=== PATIENT | male | born 1930 | race Caucasian/White ===

== ENCOUNTER 2018-01-17 11:43 | Inpatient (IN) ==
[2018-01-17 13:04] LABS: Baso % (Auto) 0.5 % (0.0-2.0); Eos # (Auto) 0.2 th/mm3 (0.0-0.4); Eos % (Auto) 2.4 % (0.0-4.0); Hematocrit 47.7 % (39.0-51.0); Hemoglobin 15.5 gm/dL (13.0-17.0); Lymph % (Auto) 10.9 % (9.0-44.0); Mean Corpuscular HGB Conc 32.4 % (32.0-36.0); Mean Corpuscular Hemoglobin 28.6 pg (27.0-34.0); Mean Corpuscular Volume 88.1 fL (80.0-100.0); Mono # (Auto) 0.6 th/mm3 (0.0-0.9); Mono % (Auto) 6.2 % (0.0-8.0); Neut # (Auto) 7.6 th/mm3 (1.8-7.7); Platelet Count 319 th/mm3 (150-450); Red Blood Count 5.41 mil/mm3 (4.50-5.90); Red Cell Distribution Width 14.6 % (11.6-17.2); White Blood Count 9.4 th/mm3 (4.0-11.0)
[2018-01-17 13:13] LABS: Chloride 106 meq/L (98-107); Potassium 4.4 meq/L (3.5-5.1); Sodium 142 meq/L (136-145)
[2018-01-17 13:17] LABS: Albumin 2.8 g/dL (3.4-5.0); Anion Gap 7 meq/L (5-15); Calcium 9.1 mg/dL (8.5-10.1); Glucose,Random 106 mg/dL (74-106)
[2018-01-17 13:18] LABS: Blood Urea Nitrogen 32 mg/dL (7-18)
[2018-01-17 13:20] LABS: Alanine Aminotransferase 21 U/L (12-78); Aspartate Aminotransferase 18 U/L (15-37)
[2018-01-17 13:21] LABS: Glomerular Filtration Rate 57 mL/min (>89)
[2018-01-17 13:22] LABS: Total Protein 7.7 g/dL (6.4-8.2)
[2018-01-17 13:23] LABS: Alkaline Phosphatase 95 U/L (45-117)
--- NOTE | 2018-01-17 14:06 | XR ---
EXAM DATE: 01/17/2018 12:51 PM EDT AGE/SEX: 87 years / Male INDICATIONS: . Short of breath and protective cough. CLINICAL DATA: This is the patient's initial encounter. Patient reports that signs and symptoms have been present for 1 week and indicates a pain score of 0/10. MEDICAL/SURGICAL HISTORY: . Cardiovascular disease. Hypercholesterolemia. Hypertension. . Appe ndectomy COMPARISON: [facility], CT ABDOMEN & PELVIS W/O CONTRAST, 01/11/2015. . FINDINGS: PA and lateral views of the chest demonstrate coarse interstitial markings throughout both lungs but more pronounced on the left. An intra-alveolar opacity is seen posteriorly within the left base. No d iscrete effusions. Heart is at the upper limits of normal in terms of size. A degenerative thoracic s pine. CONCLUSION: Bilateral predominantly interstitial opacities with left lower lobe intra-alveolar opacity. There is a component of underlying chronic interstitial fibrotic change. Left lower lobe infectious infiltrate suspected. Electronically signed by: Francisco Patel MD 01/17/2018 2:04 PM EDT
[2018-01-17] MEDS ORDERED: Azithromycin Inj 500 MG in Sodium Chlor 0.9% Inj 250 ML IV.SIG ONE (15:42)
[2018-01-17] MEDS ORDERED: Sodium Chlor 0.9% Inj 500 ML IV.SIG SCH (16:00)
--- NOTE | 2018-01-17 16:44 | ED ---
HPI General Chief Complaint: Respiratory Symptoms Stated Complaint: SOB/cough Time Seen by Provider: 01/17/18 12:51 Source: patient and family Limitations: no limitations History of Present Illness Patient is an 87-year-old male, past medical history significant for hypertension and edema, not on oxygen at home, who presents with complaint of worsening shortness of breath over the last several days with a cough. No fever nor chills. No chest pain. Family states he is still being his normal self but more dyspneic. He has not had any leg pain or swelling. MD Complaint: Reports shortness of breath and cough Onset (ago): day(s) Severity: moderate Consistency/Duration: constant Relieving factors: nothing Exacerbating factors: nothing Known history of: Reports COPD Associated symptoms: Reports denies other symptoms Treatment prior to arrival: Reports none Related Data Home Medications Medication Instructions Recorded Confirmed Aspir-81 81 mg PO HS 01/17/18 01/17/18 cholecalciferol (vitamin D3) 1,000 unit PO HS 01/17/18 01/17/18 [Vitamin D3] finasteride 5 mg PO DAILY 01/17/18 01/17/18 losartan 100 mg PO DAILY 01/17/18 01/17/18 Allergies Allergy/AdvReac Type Severity Reaction Status Date / Time No Known Allergies Allergy Verified 01/17/18 12:09 Review of Systems ROS: all other systems reviewed are negative [facility] Medical History Medical History Enlarged prostate (Acute) Hypertension (Acute) Surgical History Surgical History No history of previous surgery (Acute) Social History Social History Substance History: No History of Abuse Smoking Status: Former smoker How Often Do You Have a Drink Containing Alcohol: Never Recent Travel in [facility] within the Last 8 Weeks: No Recent Out of Country Travel within the Last 8 Weeks: No Immunization History Tetanus Immunization: Unsure Exam Narrative Exam Narrative: GENERAL: Chronically ill-appearing male in no acute distress SKIN: Focused skin assessment warm/dry. Pale. HEAD: Atraumatic. Normocephalic. EYES: Pupils equal and round. No scleral icterus. No injection or drainage. ENT: No nasal bleeding or discharge. Mucous membranes pink and moist. NECK: Trachea midline. No JVD. CARDIOVASCULAR: Regular rate and rhythm. No murmur appreciated. Intact and equal peripheral pulses. RESPIRATORY: No accessory muscle use. Rhonchi with faint crackles. GASTROINTESTINAL: Abdomen soft, non-tender, nondistended. Hepatic and splenic margins not palpable. MUSCULOSKELETAL: No obvious deformities. No clubbing. No cyanosis. No edema. NEUROLOGICAL: Awake and alert. No obvious cranial nerve deficits. Motor grossly within normal limits. Normal speech. PSYCHIATRIC: Appropriate mood and affect; insight and judgment normal. Course Initial Documented Vital Signs Pulse Rate 104 H 01/17/18 12:06 Respiratory Rate 26 H 01/17/18 12:06 Blood Pressure 92/52 L 01/17/18 12:06 Pulse Oximetry 92 L 01/17/18 12:06 Last Documented Vital Signs Pulse Rate 98 H 01/17/18 16:46 Respiratory Rate 18 01/17/18 16:46 Blood Pressure 119/58 L 01/17/18 16:46 Pulse Oximetry 94 L 01/17/18 16:46 Medical Decision Making MDM Narrative Medical decision making narrative: Patient is an 87-year-old male who presents with complaint of worsening dyspnea and cough. He is hemodynamically stable in the emergency department. He has been given duo nebs which helped slightly. EKG was without acute ischemic changes. Blood work was unremarkable. Chest x- ray was concerning for pneumonia. He has not been admitted to the hospital in the last 3 months thus he was given Rocephin and azithromycin for community- acquired pneumonia. He has been admitted to Dr. Mcgrath, hospitalist on-call, for further evaluation and management. Medical Screen Exam Complete: Yes Emergency Medical Condition: Yes Differential Diagnosis Differential Diagnosis: Differential diagnosis includes but is not limited to COPD exacerbation, pneumonia, pneumothorax, pulmonary embolism. Medical Records Medical records reviewed: Yes I reviewed the patient's medical records. Lab Data Lab results reviewed: Yes I reviewed the patient's lab results. Result diagrams: 01/17/18 12:50 01/17/18 12:50 Lab Results 01/17/18 01/17/18 01/17/18 Range/Units 12:50 12:50 12:50 CBC w Diff Auto diff final WBC 9.4 (4.0-11.0) th/mm3 RBC 5.41 (4.50-5.90) mil/mm3 Hgb 15.5 (13.0-17.0) gm/dL Hct 47.7 (39.0-51.0) % MCV 88.1 (80.0-100.0) fL MCH 28.6 (27.0-34.0) pg MCHC 32.4 (32.0-36.0) % RDW 14.6 (11.6-17.2) % Plt Count 319 (150-450) th/mm3 MPV 8.0 (7.0-11.0) fL Neut % (Auto) 80.0 H (16.0-70.0) % Lymph % (Auto) 10.9 (9.0-44.0) % [place] % (Auto) 6.2 (0.0-8.0) % Eos % (Auto) 2.4 (0.0-4.0) % Baso % (Auto) 0.5 (0.0-2.0) % Neut # (Auto) 7.6 (1.8-7.7) th/mm3 Lymph # (Auto) 1.0 (1.0-4.8) th/mm3 [place] # (Auto) 0.6 (0.0-0.9) th/mm3 Eos # (Auto) 0.2 (0.0-0.4) th/mm3 Baso # (Auto) 0.0 (0.0-0.2) th/mm3 WBC Differential . Differential Comment . Sodium 142 (136-145) meq/L Potassium 4.4 (3.5-5.1) meq/L Chloride 106 (98-107) meq/L Carbon Dioxide 29.0 (21.0-32.0) meq/L Anion Gap 7 (5-15) meq/L BUN 32 H (7-18) mg/dL Creatinine 1.20 (0.60-1.30) mg/dL Estimated GFR 57 L (>89) mL/min Random Glucose 106 (74-106) mg/dL Calcium 9.1 (8.5-10.1) mg/dL Total Bilirubin 0.8 (0.2-1.0) mg/dL AST 18 (15-37) U/L ALT 21 (12-78) U/L Alkaline Phosphatase 95 (45-117) U/L Troponin I 0.04 (0.02-0.05) ng/mL B-Natriuretic Peptide (0-100) pg/mL Total Protein 7.7 (6.4-8.2) g/dL Albumin 2.8 L (3.4-5.0) g/dL 01/17/18 Range/Units 12:50 CBC w Diff WBC (4.0-11.0) th/mm3 RBC (4.50-5.90) mil/mm3 Hgb (13.0-17.0) gm/dL Hct (39.0-51.0) % MCV (80.0-100.0) fL MCH (27.0-34.0) pg MCHC (32.0-36.0) % RDW (11.6-17.2) % Plt Count (150-450) th/mm3 MPV (7.0-11.0) fL Neut % (Auto) (16.0-70.0) % Lymph % (Auto) (9.0-44.0) % [place] % (Auto) (0.0-8.0) % Eos % (Auto) (0.0-4.0) % Baso % (Auto) (0.0-2.0) % Neut # (Auto) (1.8-7.7) th/mm3 Lymph # (Auto) (1.0-4.8) th/mm3 [place] # (Auto) (0.0-0.9) th/mm3 Eos # (Auto) (0.0-0.4) th/mm3 Baso # (Auto) (0.0-0.2) th/mm3 WBC Differential Differential Comment Sodium (136-145) meq/L Potassium (3.5-5.1) meq/L Chloride (98-107) meq/L Carbon Dioxide (21.0-32.0) meq/L Anion Gap (5-15) meq/L BUN (7-18) mg/dL Creatinine (0.60-1.30) mg/dL Estimated GFR (>89) mL/min Random Glucose (74-106) mg/dL Calcium (8.5-10.1) mg/dL Total Bilirubin (0.2-1.0) mg/dL AST (15-37) U/L ALT (12-78) U/L Alkaline Phosphatase (45-117) U/L Troponin I (0.02-0.05) ng/mL B-Natriuretic Peptide 124 H (0-100) pg/mL Total Protein (6.4-8.2) g/dL Albumin (3.4-5.0) g/dL Imaging Data Attestation: I personally reviewed and interpreted this imaging study as follows : My impression: Infiltrate. Radiologist's impression: Chest X-Ray 01/17/18 12:51 CONCLUSION: Bilateral predominantly interstitial opacities with left lower lobe intra- alveolar opacity. There is a component of underlying chronic interstitial fibrotic change. Left lower lobe infectious infiltrate suspected. Discharge Plan Discharge Disposition Patient Disposition: 30 Still Patient Discharge Condition Condition: Stable Discharge Details Diagnosis: Pneumonia Physicians Team ED Provider: [facility]ting Primary Care Provider: [facility] Attending Provider: Ricardo Mcgrath Discharge Interventions Interventions: Vital Signs Last Done: 01/17/18 16:46 Status ED Status: Admitted Patient
[2018-01-17] MEDS ORDERED: Acetaminophen 325 MG Tablet PO PRN (18:00)
[2018-01-18 05:19] LABS: Bilirubin,Urine Negative (Negative); Clarity,Urine Clear (Clear); Color,Urine Yellow (Yellw/Straw); Glucose,Urine (UA) Negative (Negative); Leukocyte Esterase,Urine Negative (Negative); Nitrite,Urine Negative (Negative); Specific Gravity,Urine 1.025 (1.002-1.035); Urobilinogen,Urine 0.2 mg/dL (Less than 2)
[2018-01-18 05:24] LABS: RBC,Urine 0-3 /hpf (0-3); Squamous Epithelial Cell,Urine 0-5 /hpf (0-5); WBC,Urine 0-5 /hpf (0-5)
[2018-01-18 05:34] LABS: Baso % (Auto) 0.5 % (0.0-2.0); Eos # (Auto) 0.5 th/mm3 (0.0-0.4); Eos % (Auto) 5.3 % (0.0-4.0); Hematocrit 41.4 % (39.0-51.0); Hemoglobin 13.5 gm/dL (13.0-17.0); Lymph # (Auto) 1.5 th/mm3 (1.0-4.8); Lymph % (Auto) 17.3 % (9.0-44.0); Mean Corpuscular HGB Conc 32.7 % (32.0-36.0); Mean Corpuscular Hemoglobin 28.7 pg (27.0-34.0); Mean Corpuscular Volume 87.7 fL (80.0-100.0); Mean Platelet Volume 7.4 fL (7.0-11.0); Mono # (Auto) 0.7 th/mm3 (0.0-0.9); Neut % (Auto) 68.9 % (16.0-70.0); Platelet Count 271 th/mm3 (150-450); Red Blood Count 4.72 mil/mm3 (4.50-5.90); Red Cell Distribution Width 14.2 % (11.6-17.2); White Blood Count 8.7 th/mm3 (4.0-11.0)
[2018-01-18 05:47] LABS: Potassium 3.8 meq/L (3.5-5.1)
[2018-01-18 05:55] LABS: Calcium 8.2 mg/dL (8.5-10.1)
--- NOTE | 2018-01-18 10:34 | P.HP ---
History of Present Illness Primary Care Physician: [facility] Chief Complaint: Shortness of breath History of Present Illness: 87-year-old man with past medical history of hypertension was brought in the ED yesterday on 01/17/18 for evaluation of worsening symptoms of shortness of breath, cough production without any report of subjective fever. Patient is a poor historian however does state he had no fever and was short of breath for quite some times. Chest x-ray in the ED revealed Bilateral predominantly interstitial opacities with left lower lobe intra-alveolar opacity, however patient has no leukocytosis. Denies any GI bleed. - Diagnosis (1) Pneumonia (2) Hypoxia Inpatient Certification: I certify that the inpatient services were ordered in accordance with Medicare regulations governing the order. This includes certification that hospital inpatient services are reasonable and necessary and in the case of services not specified as inpatient-only under 42 CFR 419.22(n), that they are appropriately provided as inpatient services in accordance to with the 2-midnight benchmark under 43 CFR 412.3(e) Estimated Total Length of Stay (Days): 2 Plans for Post Hospital Care: Not yet determined Review of Systems All other systems reviewed negative except as stated in HPI PMFSH - History History Provided By: Patient - Medical History Medical History: Medical History (Last Reviewed 01/18/18 @ 08:37 by Sobia Pettit) Enlarged prostate Hypertension - Surgical History Surgical History: Surgical History (Last Reviewed 01/18/18 @ 08:37 by Sobia Pettit) No history of previous surgery - Family History Family History: Family History (Last Updated 01/18/18 @ 10:28 by Ricardo Mcgrath MD) Other No cardiac disease - Tobacco History Second Hand Smoke Exposure: No Smoking Status: Former smoker - Alcohol History How Often Do You Have a Drink Containing Alcohol: Never - Substance Use History Substance History: No History of Abuse - Travel History Recent Travel in the [place] Within the Last 8 Weeks: No Recent Travel Out of the Country Within the Last 8 Weeks: No - Immunization History Tetanus Immunization: Unsure Medications and Allergies Active Medications: Active Medications Acetaminophen (Tylenol) 650 mg PO Q4H PRN PRN Reason: Temp > 100.4 Al Hydroxide/Mg Hydroxide (Milk Of Magnesia Liq) 30 ml PO Q12H PRN PRN Reason: Mild Constipation Aspirin (Ecotrin) 81 mg PO HS DENY Last Admin: 01/17/18 21:24 Dose: 81 mg Finasteride (Proscar) 5 mg PO DAILY DENY Sodium Chloride (Ns Inj) 500 mls @ 0 mls/hr IV.SIG BOLUS [facility] Last Infusion: 01/17/18 16:31 Dose: Infused Azithromycin 500 mg/ Sodium (Chloride) 250 mls @ 250 mls/hr IV.SIG Q24H DENY Ceftriaxone Sodium 1,000 mg/ (Sodium Chloride) 100 mls @ 200 mls/hr IV.SIG Q24H DENY Losartan Potassium (Cozaar) 100 mg PO DAILY DENY Ondansetron HCl (Zofran Inj) 4 mg IV.PUSH Q6H PRN PRN Reason: NAUSEA OR VOMITING Sodium Chloride (Ns Flush) 2 ml IV.FLUSH PRN PRN PRN Reason: FLUSH AFTER USING IV ACCESS Last Admin: 01/17/18 21:22 Dose: 2 ml Vitamin D (Vitamin D3) 1,000 unit PO [facility] Last Admin: 01/17/18 21:23 Dose: 1,000 unit Allergies Allergy/AdvReac Type Severity Reaction Status Date / Time No Known Allergies Allergy Verified 01/17/18 12:09 Home Medications Medication Instructions Recorded Confirmed Type Aspir-81 81 mg PO HS 01/17/18 01/17/18 History cholecalciferol (vitamin D3) 1,000 unit PO HS 01/17/18 01/17/18 History [Vitamin D3] finasteride 5 mg PO DAILY 01/17/18 01/17/18 History losartan 100 mg PO DAILY 01/17/18 01/17/18 History Exam Vital signs: Vital Signs 01/17/18 12:06 01/17/18 13:00 01/17/18 13:12 Temperature Pulse Rate 104 H 86 Respiratory Rate 26 H 24 Blood Pressure 92/52 L Pulse Oximetry 92 L 92 L 01/17/18 14:42 01/17/18 15:56 01/17/18 16:02 Temperature Pulse Rate 73 82 Respiratory Rate 20 16 Blood Pressure 113/66 Pulse Oximetry 97 97 01/17/18 16:46 01/17/18 17:46 01/17/18 20:00 Temperature 97.2 F L 97.3 F L Pulse Rate 98 H 78 100 H Respiratory Rate 18 18 18 Blood Pressure 119/58 L 118/56 L 146/59 H Pulse Oximetry 94 L 94 L 91 L 10/16/18 00:00 01/18/18 08:00 Temperature 96.8 F L 98.2 F Pulse Rate 86 75 Respiratory Rate 18 22 Blood Pressure 123/65 111/64 Pulse Oximetry 94 L 98 Intake & Output 01/17/18 01/18/18 01/18/18 18:59 06:59 18:59 Intake Total 850 / 850 480 / 480 30 / 30 Output Total 1450 / 1450 Balance 850 / 850 -970 / -970 30 / 30 Weight 56.2 kg 56.2 kg Intake: IV 850 / 850 Azithromycin Inj 500 MG In NS 250 / 250 Inj 250 ML @ 250 mls/hr IV.SIG ONCE ONE Rx#:[id number] NS Inj 500 ML @ Wide Open IV. 500 / 500 SIG BOLUS DENY Rx#:[id number] Rocephin Inj 1,000 MG In NS Inj 100 / 100 100 ML @ 200 mls/hr IV.SIG ONCE ONE Rx#:[id number] Oral 480 / 480 30 / 30 Output: Urine 650 / 650 Urine Amount (Catheter) 800 / 800 Straight 800 / 800 Narrative: GENERAL: NAD in elderly SKIN: Warm and dry. HEAD: Atraumatic. Normocephalic. EYES: Pupils equal and round. No scleral icterus. No injection or drainage. ENT: No nasal bleeding or discharge. Mucous membranes pink and moist. NECK: Trachea midline. No JVD. CARDIOVASCULAR: Regular rate and rhythm. RESPIRATORY: No accessory muscle use. Clear to auscultation. Breath sounds decrease bilaterally. GASTROINTESTINAL: Abdomen soft, non-tender, nondistended. Hepatic and splenic margins not palpable. MUSCULOSKELETAL: Extremities without clubbing, cyanosis, or edema. No obvious deformities. NEUROLOGICAL: Awake and alert. No obvious cranial nerve deficits. Motor grossly within normal limits. Five out of 5 muscle strength in the arms and legs. Normal speech. PSYCHIATRIC: Appropriate mood and affect; insight and judgment normal. Results - Labs CBC & Chem 7: 01/18/18 05:10 01/18/18 05:10 Labs: Laboratory Results - last 24 hr 01/17/18 01/17/18 01/17/18 12:50 12:50 12:50 CBC w Diff Auto diff final WBC 9.4 RBC 5.41 Hgb 15.5 Hct 47.7 MCV 88.1 MCH 28.6 MCHC 32.4 RDW 14.6 Plt Count 319 MPV 8.0 Neut % (Auto) 80.0 H Lymph % (Auto) 10.9 [place] % (Auto) 6.2 Eos % (Auto) 2.4 Baso % (Auto) 0.5 Neut # (Auto) 7.6 Lymph # (Auto) 1.0 [place] # (Auto) 0.6 Eos # (Auto) 0.2 Baso # (Auto) 0.0 WBC Differential . Differential Comment . Sodium 142 Potassium 4.4 Chloride 106 Carbon Dioxide 29.0 Anion Gap 7 BUN 32 H Creatinine 1.20 Estimated GFR 57 L Random Glucose 106 Calcium 9.1 Total Bilirubin 0.8 AST 18 ALT 21 Alkaline Phosphatase 95 Troponin I 0.04 B-Natriuretic Peptide Total Protein 7.7 Albumin 2.8 L Urine Color Urine Clarity Urine pH Ur Specific [place] Urine Protein Urine Glucose (UA) Urine Ketones Urine Occult Blood Urine Nitrate Urine Bilirubin Urine Urobilinogen Ur Leukocyte Esterase Urine RBC Urine WBC Ur Squamous Epith Cells Micro UA Comment Ur Microscopic Review Urine Culture Comments 01/17/18 01/18/18 01/18/18 12:50 05:00 05:10 CBC w Diff Auto diff final WBC 8.7 RBC 4.72 Hgb 13.5 D Hct 41.4 MCV 87.7 MCH 28.7 MCHC 32.7 RDW 14.2 Plt Count 271 MPV 7.4 Neut % (Auto) 68.9 Lymph % (Auto) 17.3 [place] % (Auto) 8.0 Eos % (Auto) 5.3 H Baso % (Auto) 0.5 Neut # (Auto) 6.0 Lymph # (Auto) 1.5 [place] # (Auto) 0.7 Eos # (Auto) 0.5 H Baso # (Auto) 0.0 WBC Differential . Differential Comment . Sodium Potassium Chloride Carbon Dioxide Anion Gap BUN Creatinine Estimated GFR Random Glucose Calcium Total Bilirubin AST ALT Alkaline Phosphatase Troponin I B-Natriuretic Peptide 124 H Total Protein Albumin Urine Color Yellow Urine Clarity Clear Urine pH 6.0 Ur Specific [place] 1.025 Urine Protein Trace Urine Glucose (UA) Negative Urine Ketones Negative Urine Occult Blood Trace Urine Nitrate Negative Urine Bilirubin Negative Urine Urobilinogen 0.2 Ur Leukocyte Esterase Negative Urine RBC 0-3 Urine WBC 0-5 Ur Squamous Epith Cells 0-5 Micro UA Comment Cath-culture not ind Ur Microscopic Review Microscopic reviewed Urine Culture Comments Cath-cult not ind 01/18/18 05:10 CBC w Diff WBC RBC Hgb Hct MCV MCH MCHC RDW Plt Count MPV Neut % (Auto) Lymph % (Auto) [place] % (Auto) Eos % (Auto) Baso % (Auto) Neut # (Auto) Lymph # (Auto) [place] # (Auto) Eos # (Auto) Baso # (Auto) WBC Differential Differential Comment Sodium 144 Potassium 3.8 Chloride 108 H Carbon Dioxide 30.0 Anion Gap 6 BUN 31 H Creatinine 1.10 Estimated GFR 63 L Random Glucose 88 Calcium 8.2 L D Total Bilirubin AST ALT Alkaline Phosphatase Troponin I B-Natriuretic Peptide Total Protein Albumin Urine Color Urine Clarity Urine pH Ur Specific [place] Urine Protein Urine Glucose (UA) Urine Ketones Urine Occult Blood Urine Nitrate Urine Bilirubin Urine Urobilinogen Ur Leukocyte Esterase Urine RBC Urine WBC Ur Squamous Epith Cells Micro UA Comment Ur Microscopic Review Urine Culture Comments - Imaging Impressions Chest X-Ray 01/17/18 12:51 CONCLUSION: Bilateral predominantly interstitial opacities with left lower lobe intra- alveolar opacity. There is a component of underlying chronic interstitial fibrotic change. Left lower lobe infectious infiltrate suspected. Caprini VTE Risk Assessment Caprini VTE Risk Assessment: Moderate/High Risk (score >= 2) Caprini Risk Assessment Model: Point Value = 1 Point Value = 2 Point Value = 3 Point Value = 5 Age 41-60 Minor surgery BMI > 25 kg/m2 Swollen legs Varicose veins or History of unexplained or recurrent spontaneous Oral contraceptives or hormone replacement Sepsis (< 1 month) Serious lung disease, including pneumonia (< 1 month) Abnormal pulmonary function Acute myocardial infarction Congestive heart failure (< 1 month) History of inflammatory bowel disease Medical patient at bed rest Age 61-74 Arthroscopic surgery Major open surgery (> 45 min) Laparoscopic surgery (> 45 min) Malignancy Confined to bed (> 72 hours) Immobilizing plaster cast Central venous access Age >= 75 History of VTE Family history of VTE Factor V Leiden Prothrombin [id number] Lupus anticoagulant Anticardiolipin antibodies Elevated serum homocysteine Heparin-induced thrombocytopenia Other congenital or acquired thrombophilia Stroke (< 1 month) Elective arthroplasty Hip, pelvis, or leg fracture Acute spinal cord injury (< 1 month) Prophylaxis Regimen: Total Risk Factor Score Risk Level Prophylaxis Regimen 0-1 Low Early ambulation 2 Moderate Order ONE of the following: *Sequential Compression Device (SCD) *Heparin 5000 units SQ BID 3-4 Higher Order ONE of the following medications: *Heparin 5000 units SQ TID *Enoxaparin/Lovenox 40 mg SQ daily (WT < 150 kg, CrCl > 30 mL/min) *Enoxaparin/Lovenox 30 mg SQ daily (WT < 150 kg, CrCl > 10-29 mL/min) *Enoxaparin/Lovenox 30 mg SQ BID (WT < 150 kg, CrCl > 30 mL/min) AND/OR *Sequential Compression Device (SCD) 5 or more Highest Order ONE of the following medications: *Heparin 5000 units SQ TID (Preferred with Epidurals) *Enoxaparin/Lovenox 40 mg SQ daily (WT < 150 kg, CrCl > 30 mL/min) *Enoxaparin/Lovenox 30 mg SQ daily (WT < 150 kg, CrCl > 10-29 mL/min) *Enoxaparin/Lovenox 30 mg SQ BID (WT < 150 kg, CrCl > 30 mL/min) AND *Sequential Compression Device (SCD) Assessment and Plan - Assessment (1) Pneumonia Code(s): J18.9 - Pneumonia, unspecified organism Status: Acute (2) Hypoxia Code(s): R09.02 - Hypoxemia Status: Acute - Plan 87-year-old man with Community-acquired pneumonia with hypoxia Chest x-ray noted and reviewed by me with finding of Bilateral predominantly interstitial opacities with left lower lobe intra-alveolar opacity Status post Rocephin and azithromycin IV x1 in ED, continue with IV antibiotics pending culture report Check influenza a and B antigen, pneumococcal and Legionella urinary antigens Check sputum culture Maintain oxygen saturation over 92% History of hypertension Resume outpatient medications Consult palliative care medicine PT consult to treat and eval DVT prophylaxis: Bilateral SCDs (1) Pneumonia Qualifiers: Pneumonia type: due to unspecified organism Laterality: unspecified laterality Lung location: unspecified part of lung Qualified Code(s): J18.9 - Pneumonia, unspecified organism
[2018-01-18] MEDS: Finasteride 5 MG Tablet PO SCH (10:36)
--- NOTE | 2018-01-18 11:36 | P.CONPAL ---
Consult Service: Palliative Care Requesting Physician: Ricardo Mcgrath Reason for Consult: a. To assist with evaluation and management of symptoms including: Dyspnea, debility b. To assist medical decision maker(s) with: better understanding of current medical conditions; weighing benefits/burdens of medical treatment options; making medical treatment decisions. Primary Care Provider: Physician [facility] History of Present Illness History of Present Illness: Mr. Cardenas is an 87-year-old male with a history of hypertension, BPH, COPD and chronic back pain who presented to [facility] ED on 01/17/2018 with complaints of worsening shortness of breath and a cough that began several days earlier. Patient is not on supplemental oxygen at home. Diagnostic workup revealed: * Vital signs: Pulse 104, respirations 26, BP 92/52, oxygen saturation 92% on room air * WBC: 9.4, hemoglobin 15.5, hematocrit 47.7, platelets 319, neutrophils 80.0% * Sodium: 142, potassium 4.4, chloride 106, carbon dioxide 29.0, glucose 106, calcium 9.1 * BUN: 32, creatinine 1.20, GFR 57 * Total bilirubin: 0.8, AST 18, ALT 21, alkaline phosphatase 95 * Troponin: 0.04 * BNP: 124 * Total protein: 7.7, albumin 2.8 * Urinalysis was WNL * Chest x-ray revealed bilateral predominantly interstitial opacities with left lower lobe intra-alveolar opacity. There is a component of underlying chronic interstitial fibrotic change. Left lower lobe infectious infiltrate suspected. * EKG showed no acute ischemic changes. Patient received duo nebs while in the ED which slightly improved symptoms of dyspnea. Chest x-ray was concerning for pneumonia; received IV rocephin and azithromycin. Blood cultures negative times 1 day. Palliative Care was consulted to assist with symptom management and to discuss with the family the benefits and burdens of her current illnesses and the options regarding future care. On examination, patient is alert to self. He is forgetful and intermittently confused. He denies pain and/or dyspnea but tells me he has significant shortness of breath at time. Function/Cognitive Trajectory: Patient's reports the patient has been having increased forgetfulness and confusion over the past 2 years. She said her daughter, Lou Jean, is currently visiting from [place] because it is becoming too difficult for her to care for her . They both state that the patient has had an acute decline over the past few weeks as evidenced by progressively increased weakness , unsteady gait, bowel incontinence and poor appetite. They report an estimated weight loss of 50-70 pounds in the past 1-2 years. Review of Systems other (Limited ROS due to patient's forgetfulness; patient deferred to family.) Constitutional: Reports anorexia, Reports weakness, Reports weight loss Ears, Nose, Mouth, and Throat: Reports poor balance Cardiovascular: Reports shortness of breath, Reports shortness of breath with activity, Denies chest pain, Denies foot swelling Respiratory: Reports cough Gastrointestinal: Reports change in bowel habits (Incontinence) Genitourinary: Reports other (Urinary retention) Musculoskeletal: Reports back pain (Chronic back pain), Reports decreased muscle mass Neurologic: Reports confusion (Intermittent) PMFSH - History History Provided By: Patient - Medical History Medical History: Medical History (Last Updated 01/18/18 @ 17:23 by MERCY Son) COPD (chronic obstructive pulmonary disease) Dementia Enlarged prostate History of chronic back pain Hypertension - Surgical History Surgical History: Surgical History (Last Updated 01/18/18 @ 11:18 by [facility] Son) History of appendectomy History of tonsillectomy - Family History Family History: Family History (Last Updated 01/18/18 @ 17:24 by MERCY Son) Other Myocardial infarction - Social History I have reviewed the patient's Social History: Yes - Tobacco History Second Hand Smoke Exposure: No Smoking Status: Former smoker - Alcohol History How Often Do You Have a Drink Containing Alcohol: Never - Substance Use History Substance History: No History of Abuse - Travel History Recent Travel in the [place] Within the Last 8 Weeks: No Recent Travel Out of the Country Within the Last 8 Weeks: No - Immunization History Tetanus Immunization: Unsure Medications and Allergies Active Medications: Active Medications Acetaminophen (Tylenol) 650 mg PO Q4H PRN PRN Reason: Temp > 100.4 Al Hydroxide/Mg Hydroxide (Milk Of Magnesia Liq) 30 ml PO Q12H PRN PRN Reason: Mild Constipation Aspirin (Ecotrin) 81 mg PO HS [facility] Last Admin: 01/17/18 21:24 Dose: 81 mg Finasteride (Proscar) 5 mg PO DAILY [facility] Last Admin: 10/16/18 10:36 Dose: 5 mg Sodium Chloride (Ns Inj) 500 mls @ 0 mls/hr IV.SIG BOLUS [facility] Last Infusion: 01/17/18 16:31 Dose: Infused Azithromycin 500 mg/ Sodium (Chloride) 250 mls @ 250 mls/hr IV.SIG Q24H DENY Ceftriaxone Sodium 1,000 mg/ (Sodium Chloride) 100 mls @ 200 mls/hr IV.SIG Q24H DENY Losartan Potassium (Cozaar) 100 mg PO DAILY [facility] Last Admin: 01/18/18 10:36 Dose: 100 mg Ondansetron HCl (Zofran Inj) 4 mg IV.PUSH Q6H PRN PRN Reason: NAUSEA OR VOMITING Sodium Chloride (Ns Flush) 2 ml IV.FLUSH PRN PRN PRN Reason: FLUSH AFTER USING IV ACCESS Last Admin: 01/17/18 21:22 Dose: 2 ml Vitamin D (Vitamin D3) 1,000 unit PO HS [facility] Last Admin: 01/17/18 21:23 Dose: 1,000 unit Allergies Allergy/AdvReac Type Severity Reaction Status Date / Time No Known Allergies Allergy Verified 01/17/18 12:09 Home Medications Medication Instructions Recorded Confirmed Type Aspir-81 81 mg PO HS 01/17/18 01/17/18 History cholecalciferol (vitamin D3) 1,000 unit PO HS 01/17/18 01/17/18 History [Vitamin D3] finasteride 5 mg PO DAILY 01/17/18 01/17/18 History losartan 100 mg PO DAILY 01/17/18 01/17/18 History Advance Directives Advance Directives Date on File: 01/18/18 Living Will: Yes (Completed 06/05/2004) Healthcare Surrogate: Yes (Completed 01/18/2018) Health Care Surrogate Name and Number: HCS: Kailyn. Alt HCS: fayer, Mary Documented care wishes: Living Will completed on 06/05/2004 is accessible in patient's EMR Family/friends goals: Family does not feel the patient can return to his home because his , who is 89 years old, is no longer able to care for him. [facility] at [facility] in [place]. Physical Exam Vital Signs: Vital Signs - 24 hr 01/17/18 12:06 01/17/18 13:00 01/17/18 13:12 Temperature Pulse Rate 104 H 86 Respiratory Rate 26 H 24 Blood Pressure 92/52 L Pulse Oximetry 92 L 92 L 01/17/18 14:42 01/17/18 15:56 01/17/18 16:02 Temperature Pulse Rate 73 82 Respiratory Rate 20 16 Blood Pressure 113/66 Pulse Oximetry 97 97 01/17/18 16:46 01/17/18 17:46 01/17/18 20:00 Temperature 97.2 F L 97.3 F L Pulse Rate 98 H 78 100 H Respiratory Rate 18 18 18 Blood Pressure 119/58 L 118/56 L 146/59 H Pulse Oximetry 94 L 94 L 91 L 01/18/18 00:00 01/18/18 08:00 Temperature 96.8 F L 98.2 F Pulse Rate 86 75 Respiratory Rate 18 22 Blood Pressure 123/65 111/64 Pulse Oximetry 94 L 98 I&O: Intake & Output 01/16/18 01/17/18 01/18/18 01/19/18 06:59 06:59 06:59 06:59 Intake Total 1330 / 1330 30 / 30 Output Total 1450 / 1450 Balance -120 / -120 30 / 30 Weight 56.2 kg Physical Exam: CONSTITUTIONAL/GENERAL: This is a frail, cachectic male patient in no acute distress TUBES/LINES/DRAINS: PIV, Coats catheter SKIN: No jaundice, rashes, or lesions. No wounds seen anteriorly. Skin temperature appropriate. Not diaphoretic. HEAD: Atraumatic. Normocephalic. EYES: Pupils equal and round and reactive. Extraocular motions intact. No scleral icterus. No injection or drainage. Fundi not examined. ENT: Hearing grossly normal. Nose without bleeding or purulent drainage. Throat without visible erythema, exudates, masses, or lesions. NECK: Trachea midline. Supple, nontender. No palpable thyroid enlargement or nodularity. CARDIOVASCULAR: Regular rate and rhythm without murmurs, gallops, or rubs. No JVD. Peripheral pulses symmetric. RESPIRATORY/CHEST: Symmetric, unlabored respirations on 2 L via nasal cannula. Breath sounds diminished in bases bilaterally. No accessory muscle usage. GASTROINTESTINAL: Abdomen soft, non-tender, nondistended. No hepato-splenomegaly , or palpable masses. No guarding. Bowel sounds present. GENITOURINARY: Without palpable bladder distension. Coats catheter in place. MUSCULOSKELETAL: Extremities without clubbing, cyanosis, or edema. No mottling or clubbing. LYMPHATICS: No palpable cervical or supraclavicular adenopathy. NEUROLOGICAL: Forgetful. Oreinted to self. looks to family for answers to some questions. Follows commands. Cognitively sharp. Moves all extremities. PSYCHIATRIC: No obvious anxiety/depression. No apparent hallucinations or other psychotic thought process. Diagnostic Tests Laboratory: Laboratory Results - last 72 hr 01/17/18 01/17/18 01/17/18 12:50 12:50 12:50 CBC w Diff Auto diff final WBC 9.4 RBC 5.41 Hgb 15.5 Hct 47.7 MCV 88.1 MCH 28.6 MCHC 32.4 RDW 14.6 Plt Count 319 MPV 8.0 Neut % (Auto) 80.0 H Lymph % (Auto) 10.9 Gem % (Auto) 6.2 Eos % (Auto) 2.4 Baso % (Auto) 0.5 Neut # (Auto) 7.6 Lymph # (Auto) 1.0 Gem # (Auto) 0.6 Eos # (Auto) 0.2 Baso # (Auto) 0.0 WBC Differential . Differential Comment . Sodium 142 Potassium 4.4 Chloride 106 Carbon Dioxide 29.0 Anion Gap 7 BUN 32 H Creatinine 1.20 Estimated GFR 57 L Random Glucose 106 Calcium 9.1 Total Bilirubin 0.8 AST 18 ALT 21 Alkaline Phosphatase 95 Troponin I 0.04 B-Natriuretic Peptide Total Protein 7.7 Albumin 2.8 L Urine Color Urine Clarity Urine pH Ur Specific [place] Urine Protein Urine Glucose (UA) Urine Ketones Urine Occult Blood Urine Nitrate Urine Bilirubin Urine Urobilinogen Ur Leukocyte Esterase Urine RBC Urine WBC Ur Squamous Epith Cells Micro UA Comment Ur Microscopic Review Urine Culture Comments 01/17/18 01/18/18 01/18/18 12:50 05:00 05:10 CBC w Diff Auto diff final WBC 8.7 RBC 4.72 Hgb 13.5 D Hct 41.4 MCV 87.7 MCH 28.7 MCHC 32.7 RDW 14.2 Plt Count 271 MPV 7.4 Neut % (Auto) 68.9 Lymph % (Auto) 17.3 Gem % (Auto) 8.0 Eos % (Auto) 5.3 H Baso % (Auto) 0.5 Neut # (Auto) 6.0 Lymph # (Auto) 1.5 Gem # (Auto) 0.7 Eos # (Auto) 0.5 H Baso # (Auto) 0.0 WBC Differential . Differential Comment . Sodium Potassium Chloride Carbon Dioxide Anion Gap BUN Creatinine Estimated GFR Random Glucose Calcium Total Bilirubin AST ALT Alkaline Phosphatase Troponin I B-Natriuretic Peptide 124 H Total Protein Albumin Urine Color Yellow Urine Clarity Clear Urine pH 6.0 Ur Specific [place] 1.025 Urine Protein Trace Urine Glucose (UA) Negative Urine Ketones Negative Urine Occult Blood Trace Urine Nitrate Negative Urine Bilirubin Negative Urine Urobilinogen 0.2 Ur Leukocyte Esterase Negative Urine RBC 0-3 Urine WBC 0-5 Ur Squamous Epith Cells 0-5 Micro UA Comment Cath-culture not ind Ur Microscopic Review Microscopic reviewed Urine Culture Comments Cath-cult not ind 01/18/18 05:10 CBC w Diff WBC RBC Hgb Hct MCV MCH MCHC RDW Plt Count MPV Neut % (Auto) Lymph % (Auto) Gem % (Auto) Eos % (Auto) Baso % (Auto) Neut # (Auto) Lymph # (Auto) Gem # (Auto) Eos # (Auto) Baso # (Auto) WBC Differential Differential Comment Sodium 144 Potassium 3.8 Chloride 108 H Carbon Dioxide 30.0 Anion Gap 6 BUN 31 H Creatinine 1.10 Estimated GFR 63 L Random Glucose 88 Calcium 8.2 L D Total Bilirubin AST ALT Alkaline Phosphatase Troponin I B-Natriuretic Peptide Total Protein Albumin Urine Color Urine Clarity Urine pH Ur Specific [place] Urine Protein Urine Glucose (UA) Urine Ketones Urine Occult Blood Urine Nitrate Urine Bilirubin Urine Urobilinogen Ur Leukocyte Esterase Urine RBC Urine WBC Ur Squamous Epith Cells Micro UA Comment Ur Microscopic Review Urine Culture Comments Result Diagrams: 01/18/18 05:10 01/18/18 05:10 Microbiology: Microbiology 01/17/18 13:30 Aerobic Blood Culture - Preliminary Blood - Peripheral No growth in 1 day Anaerobic Blood Culture - Preliminary No growth in 1 day 01/17/18 12:45 Aerobic Blood Culture - Preliminary Blood - Peripheral No growth in 1 day Anaerobic Blood Culture - Preliminary No growth in 1 day Imaging: Chest X-Ray 01/17/18 12:51 CONCLUSION: Bilateral predominantly interstitial opacities with left lower lobe intra- alveolar opacity. There is a component of underlying chronic interstitial fibrotic change. Left lower lobe infectious infiltrate suspected. Patient/Family Conference Present at Family Conference: Met with patient at bedside. and daughter (Lou jean) were also present. Family Conference Location: Bedside, Consult Room Issues Discussed: * Palliative care role, purpose, approach * Additional medical, psychosocial, and spiritual history * Patients general health, functional status, and cognitive changes in the months leading up to the current hospitalization * Patient/family understanding of the current medical problems * Patient/family understanding of prognosis * Patients goals of care as best understood from advance directives and/or conversations and/or values * Current medical treatment options and benefits/burdens of those options * Likely scenarios comparing ongoing aggressive care with a transition to comfort measures only * Questions answered to the best of my ability * Palliative care contact information provided Assessment and Plan - Disease Oriented Problem List (1) COPD (chronic obstructive pulmonary disease) (2) BPH (benign prostatic hyperplasia) (3) History of hypertension (4) Dementia (5) Pneumonia - Symptom Scale (1) Debility 0-10 Scale: Unable to quantify (2) Dyspnea 0-10 Scale: Unable to quantify Pertinent Non-Medical Issues: Psychosocial: Patient is originally from [place]. He met his , Kailyn, when they were both serving in the [employer]. patient fought in the [place] [email or web address] during the [employer]. He attended some college. He and Kailyn have been for 62 years. Together they had 5 children. They are daughter, Imani, within the past 1-2 years from cancer. Patient and his moved to [place] in the late 1970s. 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 Spiritual: Scientologist morris Legal: Patient has designated his (Kailyn) as his healthcare surrogate decision-maker. His daughter His daughter (Lou Jean) is the alternate healthcare surrogate decision-maker. Living will completed 01/18/2018 Ethical issues impacting care: No known ethical issues impacting care at this time. Important Contacts: Kailyn Cardenas, : [phone] Lou Cardenas, daughter: [phone] Prognosis: Patient is an 87 year old male with some degree of dementia at baseline who is currently hospitalized with pneumonia. Prior to this hospitalization he had been fairly independent but has had an acute decline in his performance status in recent weeks. Given the patient's advanced age, comorbid conditions and his recent decline in functional status, there is a high likelihood of ongoing decline and potential setbacks. Code Status: Full Code Plan: * FULL CODE * The process of cardiopulmonary resuscitation was discussed with the patient's and daughter at length. While they do not think he would want to be placed on mechanical ventilation, they would like to discuss this decision with his other children before making changes in CODE STATUS. Patient will remain in FULL CODE * Decision making: Patient has designated his (Kailyn) as his healthcare surrogate decision-maker. His daughter His daughter (Lou Jean) is the alternate healthcare surrogate decision-maker. Living will completed 01/18/2018 * Discussed patient with nurse, Rehana. * Palliative care contact information was provided to the patient's family * Goals are aggressive. However, family does not feel the patient can return to his home because his (who is 91 years old) is no longer able to care for him. [facility] at [facility] in [place]. * Symptom management: Dyspnea: Patient presented to the ED with complaints of progressively increased shortness of breath and cough for several days. Family reports a history Of COPD. Patient does not require supplemental oxygen in the home. He has dyspnea with minimal exertion. Chest x-ray was suspicious for pneumonia. Patient receiving IV antibiotics, azithromycin and rocephin. Debility:Patient's reports the patient has been having increased forgetfulness and confusion over the past 2 years. She said her daughter, Lou Jean, is currently visiting from [place] because it is becoming too difficult for her to care for her . They both state that the patient has had an acute decline over the past few weeks as evidenced by progressively increased weakness, unsteady gait, bowel incontinence and poor appetite. They report an estimated weight loss of 50-70 pounds in the past 1-2 years. Physical therapy was consulted for evaluation. If goals remain aggressive, patient would benefit from SNF placement for rehabilitation upon discharge. * Palliative care will continue to follow this patient throughout his hospitalization to establish trust, assist with symptom management and clarification of medical treatment goals. Appreciation Thank you for the opportunity to participate in the care of Alex Cardenas. Attestation Attestation: To help prompt me to consider important information that might be impacting today's encounter and assessment, information from prior notes written by myself or my colleagues may have been "brought forward" into today's note. My signature on this note, however, is an attestation that I personally performed the exam, history, and/or decision-making noted today, and, unless otherwise indicated, the interactions with patient, family, and staff as well as the review of records all occurred today. I also attest that the listed assessment and stated plan reflect my best clinical judgment today based on the combination of historical information, prior notes, and today's exam/ interactions. When time spent is documented, it refers only to time spent today by the signer, or if indicated, combined time spent today by collaborating physician/nurse practitioner.
[2018-01-18] MEDS: Azithromycin Inj 500 MG in Sodium Chlor 0.9% Inj 250 ML IV.SIG SCH (18:44)
--- NOTE | 2018-01-18 19:50 | ECG ---
Date Performed: 01/17/2018 Time Performed: 13:20:04 PTAGE: 87 years EKG: Sinus rhythm WITH OCCASIONAL SUPRAVENTRICULAR PREMATURE COMPLEXES RIGHT BUNDLE BRANCH BLOCK LEFT ANTERIOR FASCICU LAR BLOCK MINIMAL VOLTAGE CRITERIA FOR LVH, CONSIDER NORMAL VARIANT ABNORMAL ECG NO PREVIOUS TRACING DOCTOR: Soniya Menchaca Interpretating Date/Time 01/18/2018 19:48:37
[2018-01-19 06:45] LABS: Baso # (Auto) 0.1 th/mm3 (0.0-0.2); Baso % (Auto) 0.6 % (0.0-2.0); Eos # (Auto) 0.4 th/mm3 (0.0-0.4); Eos % (Auto) 4.8 % (0.0-4.0); Hemoglobin 13.6 gm/dL (13.0-17.0); Lymph # (Auto) 1.5 th/mm3 (1.0-4.8); Lymph % (Auto) 17.1 % (9.0-44.0); Mean Corpuscular HGB Conc 32.3 % (32.0-36.0); Mean Corpuscular Hemoglobin 28.3 pg (27.0-34.0); Mean Corpuscular Volume 87.5 fL (80.0-100.0); Mean Platelet Volume 7.6 fL (7.0-11.0); Mono # (Auto) 0.8 th/mm3 (0.0-0.9); Mono % (Auto) 9.1 % (0.0-8.0); Neut % (Auto) 68.4 % (16.0-70.0); Platelet Count 246 th/mm3 (150-450); Red Cell Distribution Width 14.3 % (11.6-17.2); White Blood Count 8.8 th/mm3 (4.0-11.0)
[2018-01-19 06:53] LABS: Chloride 106 meq/L (98-107); Potassium 4.2 meq/L (3.5-5.1); Sodium 141 meq/L (136-145)
[2018-01-19 06:56] LABS: Albumin 2.4 g/dL (3.4-5.0); Anion Gap 5 meq/L (5-15); Blood Urea Nitrogen 22 mg/dL (7-18); Calcium 8.2 mg/dL (8.5-10.1); Carbon Dioxide 29.6 meq/L (21.0-32.0); Glucose,Random 88 mg/dL (74-106)
[2018-01-19 06:59] LABS: Alanine Aminotransferase 17 U/L (12-78); Aspartate Aminotransferase 15 U/L (15-37)
[2018-01-19 07:00] LABS: Glomerular Filtration Rate 89 mL/min (>89)
[2018-01-19 07:01] LABS: Total Protein 6.8 g/dL (6.4-8.2)
[2018-01-19 07:02] LABS: Alkaline Phosphatase 90 U/L (45-117)
[2018-01-19] MEDS: Finasteride 5 MG Tablet PO SCH (08:14)
--- NOTE | 2018-01-19 09:30 | P.PNIM ---
Subjective Interval history: f/u; pneumonia in no acute distress. on oxygen via N/C. afebrile. d/w the RN and no acute issues over night. Physical Exam Vital signs: Vital Signs 01/18/18 12:00 01/18/18 14:00 01/18/18 21:05 Temperature 97.7 F 97.4 F L Pulse Rate 77 78 Respiratory Rate 21 21 Blood Pressure 125/59 L 109/53 L Pulse Oximetry 96 97 96 01/19/18 00:00 01/19/18 07:46 01/19/18 08:00 Temperature 97.8 F Pulse Rate 70 Respiratory Rate 18 Blood Pressure 103/59 L 107/63 Pulse Oximetry 96 99 99 Intake & Output 01/18/18 01/19/18 01/19/18 18:59 06:59 18:59 Intake Total 370 / 370 250 / 250 Output Total 800 / 800 200 / 200 Balance -430 / -430 50 / 50 Weight 56.3 kg Intake: IV 100 / 100 250 / 250 Azithromycin Inj 500 MG In NS 250 / 250 Inj 250 ML @ 250 mls/hr IV.SIG Q24H DENY Rx#:[id number] Rocephin Inj 1,000 MG In NS Inj 100 / 100 100 ML @ 200 mls/hr IV.SIG Q24H DENY Rx#:[id number] Oral 270 / 270 0 / 0 Output: Urine 300 / 300 200 / 200 Urine Amount (Catheter) 500 / 500 Straight 500 / 500 Other: Date of Last Bowel Movement 01/18/18 - Constitutional no acute distress - Routine Respiratory Exam Present: CTA bilaterally - Routine Cardiovascular Exam Present: RRR - Routine Abdominal Exam Present: soft - Routine Extremities Exam Comments: no pedal edema. - Routine Neurological Exam Present: alert (oriented to person and partly to place.) - Urinary Catheter Management Straight Cath placed during this visit: yes Reason for continuing: Acute urinary retention Insertion date: 01/18/18 Insertion time: 15:00 Indwelling Urethral Catheter Cath placed during this visit: yes Reason for continuing: Acute urinary retention Insertion date: 01/18/18 Insertion time: 15:00 Results - Labs CBC & Chem 7: 01/19/18 06:25 01/19/18 06:25 Laboratory Results - last 24 hr 01/19/18 01/19/18 06:25 06:25 CBC w Diff Auto diff final WBC 8.8 RBC 4.80 Hgb 13.6 Hct 42.0 MCV 87.5 MCH 28.3 MCHC 32.3 RDW 14.3 Plt Count 246 MPV 7.6 Neut % (Auto) 68.4 Lymph % (Auto) 17.1 [place] % (Auto) 9.1 H Eos % (Auto) 4.8 H Baso % (Auto) 0.6 Neut # (Auto) 6.0 Lymph # (Auto) 1.5 [place] # (Auto) 0.8 Eos # (Auto) 0.4 Baso # (Auto) 0.1 WBC Differential . Differential Comment . Sodium 141 Potassium 4.2 Chloride 106 Carbon Dioxide 29.6 Anion Gap 5 BUN 22 H Creatinine 0.82 Estimated GFR 89 Random Glucose 88 Calcium 8.2 L Total Bilirubin 0.7 AST 15 ALT 17 Alkaline Phosphatase 90 Total Protein 6.8 D Albumin 2.4 L Microbiology 01/17/18 13:30 Blood - Peripheral Aerobic Blood Culture - Preliminary No growth in 1 day 01/17/18 13:30 Blood - Peripheral Anaerobic Blood Culture - Preliminary No growth in 1 day 01/17/18 12:45 Blood - Peripheral Aerobic Blood Culture - Preliminary No growth in 1 day 01/17/18 12:45 Blood - Peripheral Anaerobic Blood Culture - Preliminary No growth in 1 day Assessment and Plan - Assessment (1) Pneumonia Code(s): J18.9 - Pneumonia, unspecified organism Status: Acute (2) Hypoxia Code(s): R09.02 - Hypoxemia Status: Acute - Plan Community-acquired pneumonia with hypoxia Chest x-ray noted with finding of Bilateral predominantly interstitial opacities with left lower lobe intra-alveolar opacity Status post Rocephin and azithromycin IV x1 in ED, continue with IV antibiotics - blood cultures negative so far. Maintain oxygen saturation over 92% History of hypertension Resumed outpatient medications DVT prophylaxis with subq Lovenox Consulted palliative care medicine PT consult to treat and eval remove jackson cath. DVT prophylaxis: Bilateral SCDs Discharge Planning: dc planning ; rehab- within the next 24-48 hrs if stable. (1) Pneumonia Qualifiers: Pneumonia type: due to unspecified organism Laterality: unspecified laterality Lung location: unspecified part of lung Qualified Code(s): J18.9 - Pneumonia, unspecified organism
[2018-01-19] MEDS: Enoxaparin Inj 40 MG/0.4 ML Syringe SQ SCH (12:07)
[2018-01-19] MEDS: Azithromycin Inj 500 MG in Sodium Chlor 0.9% Inj 250 ML IV.SIG SCH (17:00)
--- NOTE | 2018-01-20 08:17 | P.PNIM ---
Subjective Interval history: f/u; pneumonia in no acute distress. has occasional cough. no fever spike. d/w the RN and no acute issues over night. Physical Exam Vital signs: Vital Signs 01/19/18 12:00 01/19/18 16:00 01/19/18 19:58 Temperature 96.3 F L 97.7 F Pulse Rate 70 76 Respiratory Rate 20 20 Blood Pressure 112/56 L 102/53 L Pulse Oximetry 98 97 93 L 01/20/18 00:00 Temperature 99.7 F H Pulse Rate 102 H Respiratory Rate 18 Blood Pressure 101/58 L Pulse Oximetry 95 Intake & Output 01/19/18 01/20/18 01/20/18 18:59 06:59 18:59 Intake Total 1190 / 1190 300 / 300 Output Total 700 / 700 700 / 700 Balance 490 / 490 -400 / -400 Weight 58.1 kg Intake: IV 350 / 350 Azithromycin Inj 500 MG In NS 250 / 250 Inj 250 ML @ 250 mls/hr IV.SIG Q24H DENY Rx#:[id number] Rocephin Inj 1,000 MG In NS Inj 100 / 100 100 ML @ 200 mls/hr IV.SIG Q24H DENY Rx#:[id number] Oral 840 / 840 300 / 300 Output: Urine 700 / 700 700 / 700 Other: # Voids 1 Date of Last Bowel Movement 01/18/18 01/19/18 - Constitutional no acute distress - Routine Respiratory Exam Present: CTA bilaterally, crackles - Routine Cardiovascular Exam Present: RRR - Routine Abdominal Exam Present: soft - Routine Extremities Exam Comments: no pedal edema. - Routine Neurological Exam Present: alert - Urinary Catheter Management Straight Cath placed during this visit: yes Reason for continuing: Acute urinary retention Insertion date: 01/18/18 Insertion time: 15:00 Indwelling Urethral Catheter Cath placed during this visit: yes Reason for continuing: Acute urinary retention Insertion date: 01/18/18 Insertion time: 15:00 Results - Labs CBC & Chem 7: 01/19/18 06:25 01/19/18 06:25 Microbiology 01/17/18 13:30 Blood - Peripheral Aerobic Blood Culture - Preliminary No growth in 2 days 01/17/18 13:30 Blood - Peripheral Anaerobic Blood Culture - Preliminary No growth in 2 days 01/17/18 12:45 Blood - Peripheral Aerobic Blood Culture - Preliminary No growth in 2 days 01/17/18 12:45 Blood - Peripheral Anaerobic Blood Culture - Preliminary No growth in 2 days Assessment and Plan - Assessment (1) Pneumonia Code(s): J18.9 - Pneumonia, unspecified organism Status: Acute (2) Hypoxia Code(s): R09.02 - Hypoxemia Status: Acute - Plan Community-acquired pneumonia with hypoxia Chest x-ray noted with finding of Bilateral predominantly interstitial opacities with left lower lobe intra-alveolar opacity Status post Rocephin and azithromycin IV x1 in ED, continue with antibiotics ; will switch to po - blood cultures negative so far. Maintain oxygen saturation over 92% History of hypertension Resumed outpatient medications DVT prophylaxis with subq Lovenox Consulted palliative care medicine PT consult to treat and eval DVT prophylaxis: Bilateral SCDs Discharge Planning: dc to SNF today. see med list. f/u; pcp. d/w the patient's daughter and RN. (1) Pneumonia Qualifiers: Pneumonia type: due to unspecified organism Laterality: unspecified laterality Lung location: unspecified part of lung Qualified Code(s): J18.9 - Pneumonia, unspecified organism
--- NOTE | 2018-01-20 08:23 | P.DS ---
Date of admission: 01/17/18 15:42 Primary care physician: [facility] Brief History from admission: 87-year-old man with past medical history of hypertension was brought in the ED yesterday on 01/17/18 for evaluation of worsening symptoms of shortness of breath, cough production without any report of subjective fever. Patient is a poor historian however does state he had no fever and was short of breath for quite some times. Chest x-ray in the ED revealed Bilateral predominantly interstitial opacities with left lower lobe intra-alveolar opacity, however patient has no leukocytosis. Denies any GI bleed. DS: Diagnosis - Discharge Diagnosis (1) Pneumonia Status: Acute (2) Hypoxia Status: Acute DS: Summary Hospital Course: patient was admitted with pneumonia. he has chronic lung fibrotic changes non CXR. he was started on IV antibiotics. his blood cultures remained negative and antibiotics were switched to oral antibiotics. he will be discharged to SNF per PT recommendations and the daughter's request. - Time Spent with Patient Total time spent providing and/or coordinating discharge services: Less than 30 minutes - Quality: VTE Deep Vein Thrombosis/Pulmonary Embolism Present on Admission: No Exam Vital signs: Vital Signs 01/19/18 12:00 01/19/18 16:00 01/19/18 19:58 Temperature 96.3 F L 97.7 F Pulse Rate 70 76 Respiratory Rate 20 20 Blood Pressure 112/56 L 102/53 L Pulse Oximetry 98 97 93 L 01/20/18 00:00 Temperature 99.7 F H Pulse Rate 102 H Respiratory Rate 18 Blood Pressure 101/58 L Pulse Oximetry 95 Intake & Output 01/19/18 01/20/18 01/20/18 18:59 06:59 18:59 Intake Total 1190 / 1190 300 / 300 Output Total 700 / 700 700 / 700 Balance 490 / 490 -400 / -400 Weight 58.1 kg Intake: IV 350 / 350 Azithromycin Inj 500 MG In NS 250 / 250 Inj 250 ML @ 250 mls/hr IV.SIG Q24H DENY Rx#:[id number] Rocephin Inj 1,000 MG In NS Inj 100 / 100 100 ML @ 200 mls/hr IV.SIG Q24H DENY Rx#:[id number] Oral 840 / 840 300 / 300 Output: Urine 700 / 700 700 / 700 Other: # Voids 1 Date of Last Bowel Movement 01/18/18 01/19/18 - Constitutional no acute distress - Routine Respiratory Exam Present: CTA bilaterally, crackles - Routine Cardiovascular Exam Present: RRR - Routine Abdominal Exam Present: soft - Routine Extremities Exam Comments: no pedal edema. - Routine Neurological Exam Present: alert Results Procedures completed during hospitalization: none. Labs on day of discharge: Preliminary micro results at discharge 01/17/18 13:30 Aerobic Blood Culture - Preliminary Blood - Peripheral No growth in 2 days Anaerobic Blood Culture - Preliminary No growth in 2 days 01/17/18 12:45 Aerobic Blood Culture - Preliminary Blood - Peripheral No growth in 2 days Anaerobic Blood Culture - Preliminary No growth in 2 days - Impressions ITS Impressions Chest X-Ray 01/17/18 12:51 CONCLUSION: Bilateral predominantly interstitial opacities with left lower lobe intra- alveolar opacity. There is a component of underlying chronic interstitial fibrotic change. Left lower lobe infectious infiltrate suspected. Discharge Plan - Discharge Disposition Patient Disposition: Discharge to SNF - Discharge Condition Condition: Stable - Discharge Order Discharge Orders: Discharge Order (Routine); Ordered 01/20/18 Ordered By: Cain Vargas - Physicians Team Primary Care Provider: [facility],Physician 's Attending Provider: Cain Vargas Other Providers: Latricia Weir MD ; [facility] [place],Agency
[2018-01-20] MEDS: Finasteride 5 MG Tablet PO SCH (08:59)
[2018-01-20] MEDS: Enoxaparin Inj 40 MG/0.4 ML Syringe SQ SCH (09:00)
[2018-01-20] MEDS: Amoxicillin/Clavulanate 875/125 MG Tablet PO SCH ×2 (09:02→20:15)
--- NOTE | 2018-01-20 10:39 | P.PNPAL ---
Reason for Visit Reason for visit: a. To assist with evaluation and management of symptoms including: Dyspnea, debility b. To assist medical decision maker(s) with: better understanding of current medical conditions; weighing benefits/burdens of medical treatment options; making medical treatment decisions. Subjective Subjective/Interval History: Mr. Cardenas is an 87-year-old male with a history of hypertension, BPH, COPD and chronic back pain who presented to [facility] ED on 01/17/2018 with complaints of worsening shortness of breath and a cough that began several days earlier. Chest x-ray in the ED revealed bilateral prominent interstitial opacities with left lower lobe intra-alveolar opacity, however patient had no leukocytosis. Patient was admitted for management of pneumonia and he was started on IV antibiotics. Blood cultures were negative. Switched from IV antibiotics to oral antibiotics. Patient is pleasantly confused on exam. He has no complaints. Denies pain or shortness of breath. No recent lab work or imaging available. Wound care has been consulted for a stage II pressure injury to the sacrum. Family does not feel the patient can return to his home safely because of his increasing needs. His who is 91 years old is his primary caregiver. Physical therapy has recommended SNF placement. Case management continues to work on discharge planning. Received a phone call from patient's daughter, Lou Jean, this morning. [facility] accepted [facility] and the family has agreed, but they ultimately desire placement at [facility]. Discussed with RN (Gregg Pena). Advance Directives Advance Directives Date on File: 01/18/18 Health Care Surrogate Name and Number: HCS: Kailyn. Alt HCS: dtr, Lou Jean Documented care wishes:: Living Will completed on 06/05/2004 is accessible in patient's EMR Objective Vital Signs: Vital Signs 01/19/18 12:00 01/19/18 16:00 01/19/18 19:58 Temperature 96.3 F L 97.7 F Pulse Rate 70 76 Respiratory Rate 20 20 Blood Pressure 112/56 L 102/53 L Pulse Oximetry 98 97 93 L 01/20/18 00:00 01/20/18 08:00 01/20/18 10:27 Temperature 99.7 F H 97.8 F Pulse Rate 102 H 62 Respiratory Rate 18 17 Blood Pressure 101/58 L 101/55 L Pulse Oximetry 95 96 93 L Intake & Output 01/19/18 01/20/18 01/20/18 18:59 06:59 18:59 Intake Total 1190 / 1190 300 / 300 Output Total 700 / 700 700 / 700 Balance 490 / 490 -400 / -400 Weight 58.1 kg Intake: IV 350 / 350 Azithromycin Inj 500 MG In NS 250 / 250 Inj 250 ML @ 250 mls/hr IV.SIG Q24H DENY Rx#:[id number] Rocephin Inj 1,000 MG In NS Inj 100 / 100 100 ML @ 200 mls/hr IV.SIG Q24H DENY Rx#:[id number] Oral 840 / 840 300 / 300 Output: Urine 700 / 700 700 / 700 Other: # Voids 1 Date of Last Bowel Movement 01/18/18 01/19/18 Physical Exam: CONSTITUTIONAL/GENERAL: This is a frail, cachectic male patient in no acute distress TUBES/LINES/DRAINS: PIV, Coats catheter SKIN: No jaundice, rashes, or lesions. No wounds seen anteriorly. Skin temperature appropriate. Not diaphoretic. HEAD: Atraumatic. Normocephalic. EYES: Pupils equal and round and reactive. Extraocular motions intact. No scleral icterus. No injection or drainage. Fundi not examined. ENT: Hearing grossly normal. Nose without bleeding or purulent drainage. Throat without visible erythema, exudates, masses, or lesions. NECK: Trachea midline. Supple, nontender. No palpable thyroid enlargement or nodularity. CARDIOVASCULAR: Regular rate and rhythm without murmurs, gallops, or rubs. No JVD. Peripheral pulses symmetric. RESPIRATORY/CHEST: Symmetric, unlabored respirations on 2 L via nasal cannula. Breath sounds diminished in bases bilaterally. No accessory muscle usage. GASTROINTESTINAL: Abdomen soft, non-tender, nondistended. No hepato-splenomegaly , or palpable masses. No guarding. Bowel sounds present. GENITOURINARY: Without palpable bladder distension. Coats catheter in place. MUSCULOSKELETAL: Extremities without clubbing, cyanosis, or edema. No mottling or clubbing. LYMPHATICS: No palpable cervical or supraclavicular adenopathy. NEUROLOGICAL: Forgetful. Oreinted to self. looks to family for answers to some questions. Follows commands. Cognitively sharp. Moves all extremities. PSYCHIATRIC: No obvious anxiety/depression. No apparent hallucinations or other psychotic thought process. Diagnostic Tests Laboratory: Laboratory Results - last 72 hr 01/17/18 01/17/18 01/17/18 12:50 12:50 12:50 CBC w Diff Auto diff final WBC 9.4 RBC 5.41 Hgb 15.5 Hct 47.7 MCV 88.1 MCH 28.6 MCHC 32.4 RDW 14.6 Plt Count 319 MPV 8.0 Neut % (Auto) 80.0 H Lymph % (Auto) 10.9 Greenlee % (Auto) 6.2 Eos % (Auto) 2.4 Baso % (Auto) 0.5 Neut # (Auto) 7.6 Lymph # (Auto) 1.0 Greenlee # (Auto) 0.6 Eos # (Auto) 0.2 Baso # (Auto) 0.0 WBC Differential . Differential Comment . Sodium 142 Potassium 4.4 Chloride 106 Carbon Dioxide 29.0 Anion Gap 7 BUN 32 H Creatinine 1.20 Estimated GFR 57 L Random Glucose 106 Calcium 9.1 Total Bilirubin 0.8 AST 18 ALT 21 Alkaline Phosphatase 95 Troponin I 0.04 B-Natriuretic Peptide Total Protein 7.7 Albumin 2.8 L Urine Color Urine Clarity Urine pH Ur Specific [place] Urine Protein Urine Glucose (UA) Urine Ketones Urine Occult Blood Urine Nitrate Urine Bilirubin Urine Urobilinogen Ur Leukocyte Esterase Urine RBC Urine WBC Ur Squamous Epith Cells Micro UA Comment Ur Microscopic Review Urine Culture Comments 01/17/18 01/18/18 01/18/18 12:50 05:00 05:10 CBC w Diff Auto diff final WBC 8.7 RBC 4.72 Hgb 13.5 D Hct 41.4 MCV 87.7 MCH 28.7 MCHC 32.7 RDW 14.2 Plt Count 271 MPV 7.4 Neut % (Auto) 68.9 Lymph % (Auto) 17.3 Greenlee % (Auto) 8.0 Eos % (Auto) 5.3 H Baso % (Auto) 0.5 Neut # (Auto) 6.0 Lymph # (Auto) 1.5 Greenlee # (Auto) 0.7 Eos # (Auto) 0.5 H Baso # (Auto) 0.0 WBC Differential . Differential Comment . Sodium Potassium Chloride Carbon Dioxide Anion Gap BUN Creatinine Estimated GFR Random Glucose Calcium Total Bilirubin AST ALT Alkaline Phosphatase Troponin I B-Natriuretic Peptide 124 H Total Protein Albumin Urine Color Yellow Urine Clarity Clear Urine pH 6.0 Ur Specific [place] 1.025 Urine Protein Trace Urine Glucose (UA) Negative Urine Ketones Negative Urine Occult Blood Trace Urine Nitrate Negative Urine Bilirubin Negative Urine Urobilinogen 0.2 Ur Leukocyte Esterase Negative Urine RBC 0-3 Urine WBC 0-5 Ur Squamous Epith Cells 0-5 Micro UA Comment Cath-culture not ind Ur Microscopic Review Microscopic reviewed Urine Culture Comments Cath-cult not ind 01/18/18 01/19/18 01/19/18 05:10 06:25 06:25 CBC w Diff Auto diff final WBC 8.8 RBC 4.80 Hgb 13.6 Hct 42.0 MCV 87.5 MCH 28.3 MCHC 32.3 RDW 14.3 Plt Count 246 MPV 7.6 Neut % (Auto) 68.4 Lymph % (Auto) 17.1 Greenlee % (Auto) 9.1 H Eos % (Auto) 4.8 H Baso % (Auto) 0.6 Neut # (Auto) 6.0 Lymph # (Auto) 1.5 Greenlee # (Auto) 0.8 Eos # (Auto) 0.4 Baso # (Auto) 0.1 WBC Differential . Differential Comment . Sodium 144 141 Potassium 3.8 4.2 Chloride 108 H 106 Carbon Dioxide 30.0 29.6 Anion Gap 6 5 BUN 31 H 22 H Creatinine 1.10 0.82 Estimated GFR 63 L 89 Random Glucose 88 88 Calcium 8.2 L D 8.2 L Total Bilirubin 0.7 AST 15 ALT 17 Alkaline Phosphatase 90 Troponin I B-Natriuretic Peptide Total Protein 6.8 D Albumin 2.4 L Urine Color Urine Clarity Urine pH Ur Specific [place] Urine Protein Urine Glucose (UA) Urine Ketones Urine Occult Blood Urine Nitrate Urine Bilirubin Urine Urobilinogen Ur Leukocyte Esterase Urine RBC Urine WBC Ur Squamous Epith Cells Micro UA Comment Ur Microscopic Review Urine Culture Comments Result Diagrams: 01/19/18 06:25 01/19/18 06:25 Microbiology: Microbiology 01/17/18 13:30 Aerobic Blood Culture - Preliminary Blood - Peripheral No growth in 2 days Anaerobic Blood Culture - Preliminary No growth in 2 days 01/17/18 12:45 Aerobic Blood Culture - Preliminary Blood - Peripheral No growth in 2 days Anaerobic Blood Culture - Preliminary No growth in 2 days Assessment and Plan - Disease Oriented Problem List (1) COPD (chronic obstructive pulmonary disease) (2) BPH (benign prostatic hyperplasia) (3) History of hypertension Comment: Home medications resumed (4) Dementia (5) Pneumonia Comment: = Community acquired pneumonia with hypoxia = Initial chest x-ray with findings of bilateral prominent interstitial opacities with left lower lobe intra- alveolar opacity = Started on IV antibiotics but has been switched to PO = Blood cultures negative to date - Symptom Scale (1) Debility 0-10 Scale: Unable to quantify (2) Dyspnea 0-10 Scale: Unable to quantify Pertinent Non-Medical Issues: Psychosocial: Patient is originally from [place]. He met his , Kailyn, when they were both serving in the [employer]. patient fought in the [employer] during the [place] [employer]. He attended some college. He and Kailyn have been for 62 years. Together they had 5 children. They are daughter, Imani, within the past 1-2 years from cancer. Patient and his moved to [place] in the late 1970s. 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 Spiritual: Yazidi morris Legal: Patient has designated his (Kailyn) as his healthcare surrogate decision-maker. His daughter His daughter (Lou Jean) is the alternate healthcare surrogate decision-maker. Living will completed 01/18/2018 Ethical issues impacting care: No known ethical issues impacting care at this time. Important Contacts: Kailyn Cardenas, : [phone] Lou Cardenas, daughter: [phone] Prognosis: Patient is an 87 year old male with some degree of dementia at baseline who is currently hospitalized with pneumonia. Prior to this hospitalization he had been fairly independent but has had an acute decline in his performance status in recent weeks. Given the patient's advanced age, comorbid conditions and his recent decline in functional status, there is a high likelihood of ongoing decline and potential setbacks. Code Status: Full Code Plan: * FULL CODE * The process of cardiopulmonary resuscitation was discussed with the patient's and daughter at length. While they do not think he would want to be placed on mechanical ventilation, they would like to discuss this decision with his other children before making changes in CODE STATUS. Patient will remain in FULL CODE * Decision making: Patient has designated his (Kailyn) as his healthcare surrogate decision-maker. His daughter His daughter (Lou Jean) is the alternate healthcare surrogate decision-maker. Living will completed 01/18/2018 * Discussed patient with Dr. Vargas * Goals are aggressive. Family does not feel the patient can return home safely due to his increased needs. His who is 91 years old is his primary caregiver. [facility] at [facility] in [place]. * Symptom management: Dyspnea: Patient presented to the ED with complaints of progressively increased shortness of breath and cough for several days. Family reports a history of COPD. Patient does not require supplemental oxygen in the home. He has dyspnea with minimal exertion. Chest x-ray was suspicious for pneumonia. Received IV antibiotics initially but has now been switched to PO Debility:Patient's reports the patient has been having increased forgetfulness and confusion over the past 2 years. She said her daughter, Lou Jean, is currently visiting from [place] because it is becoming too difficult for her to care for her . They both state that the patient has had an acute decline over the past few weeks as evidenced by progressively increased weakness, unsteady gait, bowel incontinence and poor appetite. They report an estimated weight loss of 50-70 pounds in the past 1-2 years. Case management coordinating discharge to SNF. * Palliative care will continue to follow this patient throughout his hospitalization to establish trust, assist with symptom management and clarification of medical treatment goals.
--- NOTE | 2018-01-20 17:24 | P.PNWCN ---
Wound Care Nurse Consult Description: Wound consult ordered by for wound management Communicated with: Gregg CAMACHO, Recommendation: 1. Manually reposition patient every 2 hours for comfort and offloading. 2. Cleanse sacral region with remedy barrier wipes 3. Apply thin even layer of Calazime cream BID or after bowel movement. 4. Avoid using cotton underpads under patient to reduce moisture. Additional information: Patient was seen today by health science writer for wound management .Patient alert with pleasant confusion. Patient was assisted into bed were he was able to independently reposition self to right side.Electrogalvanizing Machine Operator was able to visualize sacral/ coccyx region.Patient noted to have a stage 2 pressure injury to sacrum measuring ~1.0cm x ~0.5cm x <0.2cm. wound cleansed with remedy barrier cloth thick layer of Calazime cream applied to effected area. patient tolerated wound acre well cotton underpad removed and replaced with UltraSorb moisture wicking underpad. Wound/Pressure Injury - Patient Status Premedicated for Pain Prior to Dressing Change: No - Wound Sacrum Wound Staging: Stage II Wound Assessment: Discharge Wound Type: Pressure Injury Is This a Chronic Wound: No Requested from Provider a Wound Care Consult: No (Briana CAMACHO,[facility] seen 01/20) Length (cm): 1.0 Width (cm): 0.5 Depth (cm): 0.1 Wound Bed Appearance: [place] Surrounding Tissue Temperature: Cool Drainage Amount: None Dressing Status: Open to Air Topical: Calazime cream
[2018-01-21] MEDS: Finasteride 5 MG Tablet PO SCH (09:11)
[2018-01-21] MEDS: Amoxicillin/Clavulanate 875/125 MG Tablet PO SCH (09:12)
[2018-01-21] MEDS: Enoxaparin Inj 40 MG/0.4 ML Syringe SQ SCH (09:13)
--- NOTE | 2018-01-21 09:42 | P.PNIM ---
Subjective Interval history: f/u; pneumonia in no acute distress. no fever. denies pain. awaiting transfer to SNF. Physical Exam Vital signs: Vital Signs 01/20/18 10:27 01/20/18 12:00 01/20/18 16:00 Temperature 97.0 F L 96.8 F L Pulse Rate 77 82 Respiratory Rate 18 18 Blood Pressure 102/65 112/59 L Pulse Oximetry 93 L 94 L 97 01/20/18 20:00 01/20/18 20:10 01/21/18 00:00 Temperature 96.3 F L 96 F L Pulse Rate 89 88 Respiratory Rate 20 20 Blood Pressure 132/69 131/72 Pulse Oximetry 90 L 95 90 L 01/21/18 09:05 Temperature Pulse Rate Respiratory Rate Blood Pressure Pulse Oximetry 96 Intake & Output 01/20/18 01/21/18 01/21/18 18:59 06:59 18:59 Intake Total 720 / 720 120 / 120 Balance 720 / 720 120 / 120 Weight 54.8 kg Intake: Oral 720 / 720 120 / 120 Other: # Voids 8 5 Date of Last Bowel Movement 01/19/18 # Bowel Movements 2 - Constitutional no acute distress - Routine Respiratory Exam Present: CTA bilaterally - Routine Cardiovascular Exam Present: RRR - Routine Abdominal Exam Present: soft - Routine Extremities Exam Comments: no pedal edema. - Routine Neurological Exam Present: alert - Urinary Catheter Management Straight Cath placed during this visit: yes Reason for continuing: Acute urinary retention Insertion date: 01/18/18 Insertion time: 15:00 Indwelling Urethral Catheter Cath placed during this visit: yes Reason for continuing: Acute urinary retention Insertion date: 01/18/18 Insertion time: 15:00 Results - Labs CBC & Chem 7: 01/19/18 06:25 01/19/18 06:25 Microbiology 01/17/18 13:30 Blood - Peripheral Aerobic Blood Culture - Preliminary No growth in 3 days 01/17/18 13:30 Blood - Peripheral Anaerobic Blood Culture - Preliminary No growth in 3 days 01/17/18 12:45 Blood - Peripheral Aerobic Blood Culture - Preliminary No growth in 3 days 01/17/18 12:45 Blood - Peripheral Anaerobic Blood Culture - Preliminary No growth in 3 days - Procedures none. Assessment and Plan - Assessment (1) Pneumonia Code(s): J18.9 - Pneumonia, unspecified organism Status: Acute (2) Hypoxia Code(s): R09.02 - Hypoxemia Status: Acute - Plan Community-acquired pneumonia with hypoxia Chest x-ray noted with finding of Bilateral predominantly interstitial opacities with left lower lobe intra-alveolar opacity Status post Rocephin and azithromycin IV x1 in ED, continue with antibiotics ; switched to po - blood cultures negative so far. Maintain oxygen saturation over 92% History of hypertension Resumed outpatient medications DVT prophylaxis with subq Lovenox Consulted palliative care medicine PT consult to treat and eval DVT prophylaxis: Bilateral SCDs Discharge Planning: for dc to SNF - [facility] see [facility]. f/u; pcp. d/w the patient's daughter and RN. (1) Pneumonia Qualifiers: Pneumonia type: due to unspecified organism Laterality: unspecified laterality Lung location: unspecified part of lung Qualified Code(s): J18.9 - Pneumonia, unspecified organism
--- NOTE | 2018-01-21 12:19 | P.DIET ---
Nutritional Evaluation Type of nutrition evaluation: initial Nutrition screening: Weight Loss > 10 lbs Subjective Subjective Comments: Pt finishing his breakfast when visited. Pt receptive to receiving Ensure and prefers chocolate flavor. Objective - Diagnosis Pneumonia, COPD - Objective [place] body weight: 75.5 kg % IBW: 74 Body Weight Used for Calculations: Actual (56.2) Energy Needs - Lower Range (kCal/kg): 35 Energy Needs - Upper Range (kCal/kg): 40 Lower Limit kCal/kg (kCals): 1,967 Upper Limit kCal/kg (kCals): 2,248 Lower Limit Protein Factor (Grams per Kg): 1.2 Upper Limit Protein Factor (Grams per Kg): 1.5 Lower Protein Needs (Protein): 67 Upper Protein Needs (Protein): 84 Fluid Factor (ml/kg): 35 Estimated Fluid Needs (ml): 1,967 Dietitian Reviewed in Medical Record: Current diet, Curent medications, Intake & Output, Labs, Medical history, Wound/DTI Diet Order: Regular Oral Diet Intake Amount: Good 75-90% Wound Care Note: 01/20 WOCN note: Stage 2 Pressure Injury to Sacrum Objective Comments: PMH: COPD, Dementia, h/o Chronic back pain, HTN, enlarged prostate Assessment Assessment: Pt is at nutritional risk r/t recent wt loss and increased needs for wound healing. Pt w/adequate po intake 50% or greater for meals here. Send Ensure Enlive TID for added nutrition and to assist w/wound healing(= 350 kcal and 20g Protein per serving). Labs reviewed. Dietitian following. Recommendations: 1. Send Ensure Enlive TID for added nutrition and to assist w/wound healing 2. Dietitian following Dietitian to Monitor: Lab values, Supplement acceptance, Intake & Output, Weight change, PO Intake, Wound/skin status, Medical course
[2018-01-21 12:53] VITALS: RESP 20
[2018-01-21 16:35] VITALS: BP 113/55; PULSE 80; TEMP 97.8; O2SAT 93
== END 2018-01-21 16:44 ==
LOC: PHEFT 11:43 → PHEDA 15:42 → PH3 17:24
PROVIDERS: ADMIT Internal Medicine; ATTEND Internal Medicine